=== PATIENT | male | born 1980 | race Caucasian/White ===

== ENCOUNTER 2022-10-09 12:56 | Emergency (ER) | payer OTHER, SELFPAY ==
--- NOTE | ~2022-10-09 | XR_ITS ---
EXAMINATION: XR chest 2V DATE: 10/09/2022 15:07 INDICATION: Shortness of breath, cough and fever TECHNIQUE: PA and lateral views of the chest were obtained. COMPARISON: None FINDINGS: No focal airspace opacities, pulmonary edema, pleural effusion or pneumothorax. The cardiomediastinal silhouette is normal. Visualized bones and soft tissues are unremarkable. IMPRESSION: 1. No acute cardiopulmonary disease. Reviewed, dictated and finalized at location A. EF OPERATOR
[2022-10-09 13:24] VITALS: BP 120/70; PULSE 103; RESP 20; TEMP 37.3; O2SAT 100
[2022-10-09 14:10] LABS: Influenza A QL RT-PCR Positive (Negative); Influenza B QL RT-PCR Negative (Negative); SARS-CoV-2 RNA PCR Negative
[2022-10-09 14:39] VITALS: O2SAT 98
--- NOTE | 2022-10-09 14:56 | ED.GENADULT ---
HPI - General Adult General Chief complaint: Upper Respiratory Infection Stated complaint: fever, chills, cough Time Seen by Provider: 10/09/22 14:42 History of Present Illness HPI narrative: Patient is a 41 year old male here for evaluation of cough, congestion, body aches and fever for the past 3 days. Patient states that his symptoms are worse at night. Has not attempted any medicine for his pain. Positive sick contacts. No chest pain, syncope, weakness, hemoptysis. He is previously healthy and has no past medical history. Related Data Allergies Allergy/AdvReac Type Severity Reaction Status Date / Time No Known Allergies Allergy Mild Verified 10/09/22 13:27 Review of Systems Review of Systems: Gen.: Reports fevers. Eyes: Denies eye pain or visual change ENT: Denies congestion Respiratory: Reports cough and shortness of breath CV: Denies chest pain or palpitations GI: Denies abdominal pain nausea, emesis or diarrhea denies burning, urgency, frequency or hematuria Musculoskeletal: Denies back pain or muscle pain Neuro: Denies numbness, tingling, weakness or focal weakness Skin: Denies rash Except as documented, all other systems reviewed and negative Exam Narrative: APPEARANCE: Well appearing, no pain in distress, well-nourished. Head: Normocephalic and atraumatic. EYES: PERRLA/EOMI, conjunctivae clear NOSE: No nasal drainage EARS: External ear normal in appearance THROAT: Oropharynx is clear. Mucous membranes are moist. NECK: Supple. No adenopathy, no masses. RESPIRATORY: Airway patent, respirations nonlabored. Clear to auscultation bilaterally, no rales, rhonchi, wheezing. CARDIOVASCULAR: Regular rate and rhythm without murmurs, rubs, or gallops. ABDOMINAL: Normoactive bowel sounds. Soft, nontender, nondistended. No rebound tenderness or guarding. MUSCULOSKELETAL: Extremities are warm and well-perfused. Moves all extremities well. No edema. NEURO: Normal speech. No focal neurologic deficits. SKIN: Skin is warm and dry. No rashes. PSYCHIATRIC: Normal affect/mood. Course Vital Signs Vital signs: Vital Signs Temperature 99.2 F 10/09/22 13:24 Pulse Rate 103 H 10/09/22 13:24 Respiratory Rate 20 10/09/22 13:24 Blood Pressure 120/70 10/09/22 13:24 Pulse Oximetry 100 10/09/22 13:24 Oxygen Delivery Room Air 10/09/22 13:24 Temperature 99.2 F 10/09/22 13:24 Pulse Rate 103 H 10/09/22 13:24 Respiratory Rate 20 10/09/22 13:24 Blood Pressure 120/70 10/09/22 13:24 Pulse Oximetry 98 10/09/22 14:39 Oxygen Delivery Room Air 10/09/22 14:39 Medical Decision Making [facility] Narrative Medical decision making narrative: 41-year-old male here for evaluation of upper respiratory infectious symptoms for the past several days. He is nontoxic-appearing and has normal vital signs aside from very slight tachycardia upon presentation. His flu a is positive which likely explains the symptoms. Chest x-ray is clear. D-dimer is negative. Basic labs unremarkable. Patient is outside of the window for Tamiflu. He is stable for discharge at this time as he is not hypoxic or immunocompromise. He will be discharged to follow-up with his primary care doctor. Vital Signs Vital Signs: Vital Signs Temperature 99.2 F 10/09/22 13:24 Pulse Rate 103 H 10/09/22 13:24 Respiratory Rate 20 10/09/22 13:24 Blood Pressure 120/70 10/09/22 13:24 Pulse Oximetry 100 10/09/22 13:24 Oxygen Delivery Room Air 10/09/22 13:24 Temperature 99.2 F 10/09/22 13:24 Pulse Rate 103 H 10/09/22 13:24 Respiratory Rate 20 10/09/22 13:24 Blood Pressure 120/70 10/09/22 13:24 Pulse Oximetry 98 10/09/22 14:39 Oxygen Delivery Room Air 10/09/22 14:39 Lab Data 10/09/22 16:09 10/09/22 16:09 Labs: Lab Results 10/09/22 10/09/22 10/09/22 Range/Units 13:28 16:09 16:09 WBC 10.2 H (4.5-10.0) K/mm3 RBC 4.31 L (4.6-6.20) M/mm3 Hgb 13.3 L (14.0
[2022-10-09 16:20] LABS: Basophils Percent Auto 0.1 % (0.2-1.2); Eosinophils Percent Auto 0.2 % (0-4.4); Hematocrit 37.3 % (42.0-52.0); Hemoglobin 13.3 g/dL (14.0-18.0); Immature Granulocyte Absolute 0.03 K/mm3 (0.00-0.031); Immature Granulocyte Percent A 0.3 % (0-0.5); Lymphocytes Absolute Auto 1.33 K/mm3 (0.9-3.2); Lymphocytes Percent Auto 13.1 % (18.3-44.2); Mean Corpuscular HGB Conc 35.7 g/dl (32-36); Mean Corpuscular Hemoglobin 30.9 pg (26-34); Mean Corpuscular Volume 86.5 fl (80-100); Mean Platelet Volume 9.9 fl (7.4-10.4); Monocytes Absolute Auto 0.9 K/mm3 (0.1-0.6); Monocytes Percent Auto 9.3 % (2.6-8.5); Neutrophils Absolute Auto 7.8 K/mm3 (1.3-6.7); Platelet Count Result 149 k/mm3 (150-375); Red Blood Count 4.31 M/mm3 (4.6-6.20); Red Cell Distribution Width 12.6 % (11.5-14.5); White Blood Count 10.2 K/mm3 (4.5-10.0)
[2022-10-09 16:32] LABS: Anion Gap 3 mmol/L (8-16); Blood Urea Nitrogen 16 mg/dL (9-20); Calcium 8.6 mg/dL (8.4-10.2); Carbon Dioxide 27 mmol/L (22-30); Chloride 97 mmol/L (98-107); Estimated CRCL calculation 130 ml/min; Estimated Glomerular Filt Rate > 60; Glucose 121 mg/dL (65-110); Potassium 4.1 mmol/L (3.4-5.0); Sodium 127 mmol/L (137-145)
[2022-10-09 16:47] LABS: D Dimer 0.42 ug/mL (<0.48)
== END 2022-10-09 17:20 | disposition home or self-care (01) ==
PROVIDERS: Emergency Medicine; Emergency Provider Physician Assistant
DX: J10.1 Influenza due to other identified influenza virus with other respiratory manifestations (principal); Z20.822 Contact with and (suspected) exposure to COVID-19
CPT/HCPCS: 36415; 71046; 80048; 85025; 85380; 87636; 99283